=== PATIENT | female | born 1990 | race Caucasian/White ===

== ENCOUNTER 2017-06-18 09:25 | Emergency (ER) | payer MEDICAID ==
[2017-06-18] MEDS ORDERED: ONDANSETRON HCL/PF 2 MG/ML VIAL ONE (10:42)
[2017-06-18] MEDS ORDERED: NORMAL SALINE 1,000 ML IV ONE (10:47)
[2017-06-18] MEDS ORDERED: ONDANSETRON HCL/PF 2 MG/ML VIAL IV ONE (10:47)
[2017-06-18 11:08] LABS: Hematocrit 39.5 % (37.0-47.0); Hemoglobin 13.3 gm/dL (12.5-16.0); Mean Cell Volume 84.4 fl (78-100); Mean Corpuscular Hemoglobin 28.4 pg (27-31); Mean Corpuscular Hgb Conc 33.7 g/dl (32-36); Mean Platelet Volume 10.5 fl (6.0-9.5); Neutrophil # 5.1 K/mm3 (1.3-6.0); Neutrophil % 75.6 % (42-75.0); Platelet Count 203 K/mm3 (150-450); Red Blood Count 4.68 M/mm3 (4.2-5.4); Red Cell Distribution Width 14.1 % (11.5-14.0); White Blood Count 6.8 K/mm3 (4.0-10.5)
[2017-06-18 11:17] LABS: Urine Appearance Slightly Cloudy; Urine Color Dark Yellow
[2017-06-18 11:18] LABS: Urine Bilirubin Negative (NEGATIVE); Urine Blood Negative /ul (NEGATIVE); Urine Ketone Negative (NEGATIVE); Urine Nitrite Negative (NEGATIVE); Urine Protein Negative (NEGATIVE); Urine Urobilinogen Normal (NORMAL); Urine WBC 0-5 /hpf (0-5)
[2017-06-18 11:19] LABS: Urine Amorphous Sediment Few - 1+ (NONE-FEW); Urine Bacteria 1+; Urine RBC None Seen /hpf (0-5)
[2017-06-18 11:22] LABS: Albumin * 3.2 gm/dl (3.4-5.0); Anion Gap 17.6 mmol/L (6.8-13.8); BUN/Creatinine Ratio 10.7 (9.0-21.6); Bilirubin, Total 0.2 mg/dL (0.0-1.1); Ca. Corrected For Albumin 8.8 mg/dL (8.4-10.2); Calcium * 8.5 mg/dL (7.9-10.9); Carbon Dioxide 19.2 mmol/L (24-32.6); Potassium 3.8 mmol/L (3.4-4.6); Total Protein 7.1 gm/dL (6.2-8.2)
--- NOTE | 2017-06-18 12:10 | ERNOTE ---
Medical Problem HPI - Narrative Date of Service: 06/18/17 - General Chief Complaint: Nausea/Vomiting Time Seen by Provider: 06/18/17 11:05 Source: patient Exam Limitations: no limitations - Immun/Allergies/Home Medications Immunizations: IMMUNIZATION HX Immunizations Up to Date Yes History of Influenza Vaccine Yes Hx Pneumococcal Vaccination No Allergies/Adverse Reactions: Allergies No Known Allergies Allergy (Verified 06/18/16 11:28) Home Medications: HOME MEDICATIONS ALPRAZolam [Xanax] 1 mg PO TID 02/11/15 [Last Taken Unknown] Sertraline HCl [Zoloft] 250 mg PO DAILY 02/11/15 [Last Taken Unknown] Levothyroxine Sodium [Synthroid] 175 mcg PO DAILY 10/18/15 [Last Taken Unknown] Ondansetron HCl [Zofran] 4 mg PO Q3H6XD PRN #20 tablet 06/18/17 [Last Taken Unknown] Vit No.129/Iron/FA [ One Daily Tablet] 1 each PO DAILY [Last Taken Unknown] - History of Present History Narrative: Patient is a 26-year-old 3 para 2 female with 2 previous normal spontaneous vaginal delivery presents to the emergency room with increased pelvic cramping. And severe nausea. Patient states that she's been sick for approximately 2 days she also experienced some swelling of her lower extremities. Her pain is considered suprapubically right at the vaginal area. Date (Duration): 06/18/17 Time (Timing): 08:00 Timing: getting worse, other - started yesterday Modifying Factors - (Improves): Present: rest Review of Systems - Review of Systems Constitutional: Present: See HPI, malaise Cardiology: Present: no symptoms reported Gastrointestinal/Abdominal: Present: nausea, eating less, drinking less Genitourinary: Present: no symptoms reported Musculoskeletal: Present: other - pedal edema Skin: Present: no symptoms reported Neurological: Present: no symptoms reported Endocrine: Present: no symptoms reported Hematologic/Lymphatic: Present: no symptoms reported Psych: Present: no symptoms reported All Other Systems: All systems neg except as marked - Patient's Past Medical History Patient History - Medical: Anxiety, Hypothyroidism Patient History - Cardiac/Respiratory: No pertinent hx Patient History - Cancer: No Hx of Cancer Patient History - Surgical Procedures: Appendectomy, , T & A, Other Patient History - Other: None - Family History Father Family History - Medical: Other Family History - Cardiac/Respiratory: No pertinent hx - Social History Living Situations: home Abuse History: No History of abuse Psych History: Hx of Depression Smoking Status: Current every day smoker Have you smoked in the past 12 months: Yes Do you dip or chew tobacco: No Alcohol Use: rarely Drug Use: none - Immunizations Immunizations Up to Date: Yes Hx Pneumococcal Vaccination: No History of Influenza Vaccine: Yes Physical Exam - Physical Exam General Appearance: Present: alert, mild distress Head Exam: Present: normal inspection, no evidence of injury Eye Exam: Normal inspection: bilateral, PERRL: bilateral Ears, Nose, Throat: Present: dry mucous membranes Neck: Present: normal inspection, nontender Respiratory: Present: no respiratory distress, normal breath sounds Cardiovascular/Chest: Present: regular rate, rhythm, no murmur, normal peripheral pulses Gastrointestinal/Abdominal: Present: normal bowel sounds, nontender, nondistended, other - gravid abdomen nontender. Rectal Exam: Present: deferred Back Exam: Present: normal inspection Extremity Exam: Present: normal inspection Neurological Exam: Present: alert, oriented, normal mood/affect Skin Exam: Present: normal color, warm/dry Lymphatic Exam: Present: no adenopathy Pelvic Exam: Present: deferred ED Progress - Results and Orders Patient's Lab Results:: I have reviewed the patient's lab results. Results and Orders: Laboratory Tests 06/18/17 06/18/17 06/18/17 10:57 10:57 10:57 WBC 6.8 RBC 4.68 Hgb 13.3 Hct 39.5 MCV 84.4 MCH 28.4 MCHC 33.7 RDW 14.1 H Plt Count 203 MPV 10.5 H Immature Gran % (Auto) 0.60 H Immature Gran # (Auto) 0.04 H Neutrophils % 75.6 H Lymphocytes % 13.7 L Monocytes % 8.3 Eosinophils % 1.2 Basophils % 0.6 Nucleated RBC % 0.0 Neutrophils # 5.1 Lymphocytes # 0.9 L Monocytes # 0.6 Eosinophils # 0.1 Absolute Basophils 0.0 Sodium 137 Plasma Sodium 137 Potassium 3.8 Chloride 104 Carbon Dioxide 19.2 L Anion Gap 17.6 H BUN 6 D Creatinine 0.56 Est GFR (Non-Af Amer) 139 H D BUN/Creatinine Ratio 10.7 Random Glucose 93 Calcium 8.5 Calcium Adj for Albumin 8.8 Total Bilirubin 0.2 AST 24 ALT 38 Alkaline Phosphatase 74 Total Protein 7.1 Albumin 3.2 L Urine Color Dark yellow Urine Appearance Slightly cloudy Urine pH 6.0 Ur Specific [place] 1.030 Urine Protein Negative Urine Glucose (UA) Negative Urine Ketones Negative Urine Blood Negative Urine Nitrate Negative Urine Bilirubin Negative Urine Urobilinogen Normal Ur Leukocyte Esterase Negative Urine RBC None seen Urine WBC 0-5 Ur Epithelial Cells 5-10 H Amorphous Sediment Few - 1+ Urine Bacteria 1+ H Urine Culture Comments No culture indicated - Vital Signs Patient's Vital Signs:: I have reviewed the patient's vital signs. Vital Signs: Vital Signs 06/18/17 06/18/17 06/18/17 09:32 10:14 10:46 Temperature 36.6 C Pulse Rate 108 H 73 85 Respiratory 14 16 18 Rate Blood Pressure 145/81 135/88 114/72 O2 Sat by Pulse 100 97 94 Oximetry 06/18/17 10:49 Temperature 37.0 C Pulse Rate 82 Respiratory 16 Rate Blood Pressure 135/88 O2 Sat by Pulse 97 Oximetry - CT/Ultrasound CT/Ultrasound Narrative: OB ultrasound performed to the report will be reviewed per radiologist's. Patient has no evidence of placenta previa. Low-lying placenta is noted but she is only 13 weeks. heart tones 150 155 bpm active movement of fetus was noted. [facility] PATIENT RADIOLOGY STUDY REPORT Patient Patient Name:ASHISH MCINTOSH Date: 1990 Sex: F Order Number: [id number] Unique Exam ID: [id number] Exam Requested: OB LIMIT - US OB Limited Date Scheduled: 06-18-2017 10:50 AM Study Priority: Requesting Service: Requesting Physician: Mariama Godoy Reason for Exam: severe cramping, nausea Radiological Report : [address] [place] [address] NAME: ASHISH MCINTOSH : 1990 MR #: [id number] CC: Mariama Godoy DO LOC: ER ADM DATE: X-RAY REPORT [id number] ULT/US OB Limited Exam Date: 06/18/2017 10:50 Ordering Physician: Mariama Godoy HISTORY/INDICATION: 26 years old Female severe cramping, nausea, . Clinical IRAM of 12/06/2017, clinical gestational age of 15 weeks 4 days. TECHNIQUE: Transabdominal ultrasound images obtained in a limited fashion as below. COMPARISONS: None available regarding the current . US OB Limited FINDINGS/IMPRESSION: 1. There is a single gestational sac with a single live intrauterine , with transverse lie, with spontaneous motion, with heart tone seen with M -mode imaging, with heart rate of 155 bpm. 2. Anterior low-lying placenta noted, with inferior edge of the placenta near the internal os. 3. Amniotic fluid appears to be grossly adequate by visual inspection. 4. Transabdominal measurement of the cervical length is within normal limits measuring 3.36 cm without obvious internal funneling. 5. There may be a transient contraction of the posterior uterine wall. 6. No free fluid in the pelvis. Electronically signed by Ria Andujar M.D.. Ria Andujar MD Dict: 06/18/17 1132 Typed: 06/18/17 113/ 06/18/17 1136 06/18/17 1139 , Approved by: RIA ANDUJAR Approval Date: 06-18-2017 Approval Time: 11:32 AM THIS REPORT WAS RECEIVED FROM THE [employer] SYSTEM - Progress/Reassessment Chief Complaint: Nausea/Vomiting Progress:: Improved Plan - Plan Plan: Patient was stable for discharge for discharge vital signs were reviewed with her and she had significantly low blood pressure was counseled on staying well hydrated using fluids of vitamin water and recommended follow-up with her OB within the next 48 hours. Departure - Departure Clinical Impression: Hypovolemia dehydration Qualifiers: Weeks of gestation: 15 weeks Qualified Code(s): Z3A.15 - 15 weeks gestation of Disposition: Home self-care Condition: Stable Instructions: Rehydration, Adult, Eating Plan for Women Referrals: Nini Garibay MD [Primary Care Provider] - Jose Frost DO [Staff Physician] - 06/22/17 (call for a recheck of your blood pressure ) Prescriptions: Ondansetron HCl [Zofran] 4 mg PO Q3H6XD PRN #20 tablet PRN Reason: Nausea
[2017-06-18 13:18] VITALS: BP 95/40
== END 2017-06-18 12:42 | disposition home or self-care (01) ==
LOC: ER 09:25
DX: O99.282 Endocrine, nutritional and metabolic diseases complicating pregnancy, second trimester (principal); Z3A.15 15 weeks gestation of pregnancy; F17.200 Nicotine dependence, unspecified, uncomplicated; E03.9 Hypothyroidism, unspecified; F41.9 Anxiety disorder, unspecified; F32.9 Major depressive disorder, single episode, unspecified
CPT/HCPCS: 36415; 76815; 80053; 81001; 85025; 96361; 96374; 99284; J2405

== ENCOUNTER 2017-09-13 12:21 | Day surgery (SDC) | payer MEDICAID ==
[2017-09-13] MEDS ORDERED: MORPHINE SULFATE 4 MG/ML SYRG IV ONE (13:44)
[2017-09-13] MEDS ORDERED: METOCLOPRAMIDE HCL 5 MG/ML VIAL IV ONE (13:44)
[2017-09-13] MEDS ORDERED: NORMAL SALINE 1,000 ML IV ONE ×2 (13:44→15:48)
[2017-09-13] MEDS ORDERED: METOCLOPRAMIDE HCL 5 MG/ML VIAL ONE (13:47)
[2017-09-13] MEDS ORDERED: MORPHINE SULFATE 4 MG/ML SYRG ONE (13:47)
--- NOTE | 2017-09-13 13:53 | ERNOTE ---
GI Bleeding/Rectal Pain ER Date of Service: 09/13/17 Presenting Symptoms: hemorrhoids Time Seen by Provider: 09/13/17 12:48 Source: patient, RN notes reviewed, past records Exam Limitations: no limitations Immunizations: IMMUNIZATION HX Immunizations Up to Date Yes History of Influenza Vaccine Yes Hx Pneumococcal Vaccination No Allergies/Adverse Reactions: Allergies No Known Allergies Allergy (Verified 09/13/17 12:28) Home Medications: HOME MEDICATIONS ALPRAZolam [Xanax] 1 mg PO TID 02/11/15 [Last Taken Unknown] Sertraline HCl [Zoloft] 250 mg PO DAILY 02/11/15 [Last Taken Unknown] Levothyroxine Sodium [Synthroid] 225 mcg PO DAILY 10/18/15 [Last Taken Unknown] Ondansetron HCl [Zofran] 4 mg PO Q3H6XD PRN #20 tablet 06/18/17 [Last Taken Unknown] Vit No.129/Iron/FA [ One Daily Tablet] 1 each PO DAILY [Last Taken Unknown] Hydroxyzine HCl 50 mg PO HS 09/13/17 [Last Taken Unknown] - Pain Score Pain Score #1 Pain Score: 8 Narrative: 27 year old female patient of Dr. Frost presents to the ED for hemorrhoids that began bothering her 2 days ago. She is 28 weeks . She reports having problems with hemorrhoids during her previous pregnancies, but they were not this severe. She has tried numerous OTC medications and home remedies without improvement. She denies constipation and has been taking a stool softener. Nausea/Vomiting: Present: none Abdominal Pain: Present: none Rectal Bleeding: Present: none Associated Symptoms: Reports: rectal pain. Denies: constipation/hard stools, dizziness, light headedness, diarrhea Prior Treament: Reports: similar symptoms before. Denies: recently seen Review of Systems - Review of Systems Constitutional: Absent: fever, chills, malaise EYE: Present: no symptoms reported ENT: Present: no symptoms reported Respiratory: Absent: shortness of breath, cough Cardiology: Absent: chest pain, palpitations, syncope Gastrointestinal/Abdominal: Absent: nausea, vomiting, abdominal pain Genitourinary: Absent: dysuria, hematuria Musculoskeletal: Absent: muscle pain, joint pain Skin: Absent: rash, lesions, lumps Neurological: Absent: headache, dizziness/light-headedness Endocrine: Present: no symptoms reported Hematologic/Lymphatic: Absent: easy bruising, easy bleeding Psych: Present: no symptoms reported - Patient's Past Medical History Patient History - Medical: Anxiety, Chronic Pain, Depression, GERD, Hypothyroidism, Migraines, Obesity Patient History - Cardiac/Respiratory: No pertinent hx Patient History - Cancer: No Hx of Cancer Patient History - Surgical Procedures: Appendectomy, , T & A, Orthopedic Patient History - Other: None LMP (females 10-50): - LMP (Calendar): 02/09/17 - Family History Father Family History - Medical: Other Family History - Cardiac/Respiratory: No pertinent hx - Social History Living Situations: home Abuse History: No History of abuse Psych History: Hx of Depression, Current tx/ever been on anti-depressants or anti-anxiety meds Smoking Status: Current every day smoker Alcohol Use: none Drug Use: none - Immunizations Immunizations Up to Date: Yes Hx Pneumococcal Vaccination: No History of Influenza Vaccine: Yes Physical Exam - Physical Exam General Appearance: Present: alert, mild distress, obese Neck: Present: normal inspection, nontender, supple Respiratory: Present: no respiratory distress, normal breath sounds, no accessory muscle use, lungs clear Cardiovascular/Chest: Present: no murmur, normal peripheral pulses, tachycardia Gastrointestinal/Abdominal: Present: normal bowel sounds, nontender, soft, distended - Gravid uterus Rectal Exam: Present: tenderness, hemorrhoids - Large, tense, nonreducible Extremity Exam: Present: normal inspection, normal range of motion, no edema Neurological Exam: Present: alert, oriented, normal mood/affect, no motor/ sensory deficits Skin Exam: Present: normal color, warm/dry ED Progress - Vital Signs Patient's Vital Signs:: I have reviewed the patient's vital signs. Vital Signs: Vital Signs 09/13/17 09/13/17 09/13/17 12:24 12:47 13:25 Temperature 36.9 C Pulse Rate 108 H 88 86 Respiratory 12 14 Rate Blood Pressure 135/84 111/70 123/76 O2 Sat by Pulse 100 98 97 Oximetry - Progress/Reassessment Chief Complaint: Rectal Bleeding Progress:: Unchanged Progress Note-Subjective: 09/13/17 13:20 Dr. Medina contacted regarding patient and saw her in the ED. He plans to take her to the OR. The patient last ate an hour ago. She will be moved to ambulatory surgery status until later this afternoon when the procedure can be done. Departure Clinical Impression: Hemorrhoids during in third trimester - Departure Disposition: [facility] Condition: Stable Referrals: Nini Garibay MD [Primary Care Provider] -
--- NOTE | 2017-09-13 14:50 | HP ---
Chief Complaint - Chief Complaint Date of Service: 09/13/17 Time of Service: 14:42 Chief Complaint: Painful hemorrhoid History of Present Illness: 28 week pt presents with 3 day history of hemorrhoidal pain. Presented to ER and has A large thrombosis. - Patient's Past Medical History Patient History - Medical: Anxiety, Chronic Pain, Depression, GERD, Hypothyroidism, Migraines, Obesity Patient History - Cardiac/Respiratory: No pertinent hx Patient History - Cancer: No Hx of Cancer Patient History - Surgical Procedures: Appendectomy, , T & A, Orthopedic Patient History - Other: None LMP (females 10-50): - LMP (Calendar): 02/09/17 - Family History Father Family History - Medical: Other Family History - Cardiac/Respiratory: No pertinent hx - Social History Living Situations: home Abuse History: No History of abuse Psych History: Hx of Depression, Current tx/ever been on anti-depressants or anti-anxiety meds Smoking Status: Current every day smoker Alcohol Use: none Drug Use: none - Immunizations Immunizations Up to Date: Yes Hx Pneumococcal Vaccination: No History of Influenza Vaccine: Yes Review Of Systems (GEN) - Review of Systems Abdominal: Present: Other - See HPI Misc: All systems neg except as marked Immunizations: IMMUNIZATION HX Immunizations Up to Date Yes History of Influenza Vaccine Yes Hx Pneumococcal Vaccination No Allergies/Adverse Reactions: Allergies Allergy/AdvReac Type Severity Reaction Status Date / Time No Known Allergies Allergy Verified 09/13/17 12:28 Home Medications: HOME MEDICATIONS ALPRAZolam [Xanax] 1 mg PO TID 02/11/15 [Last Taken Unknown] Sertraline HCl [Zoloft] 250 mg PO DAILY 02/11/15 [Last Taken Unknown] Levothyroxine Sodium [Synthroid] 225 mcg PO DAILY 10/18/15 [Last Taken Unknown] Ondansetron HCl [Zofran] 4 mg PO Q3H6XD PRN #20 tablet 06/18/17 [Last Taken Unknown] Vit No.129/Iron/FA [ One Daily Tablet] 1 each PO DAILY [Last Taken Unknown] Hydroxyzine HCl 50 mg PO HS 09/13/17 [Last Taken Unknown] Exam - Exam Vital Signs: Vital Signs - Last Taken Temp 36.9 C 09/13/17 12:24 Pulse 78 09/13/17 13:58 Resp 14 09/13/17 13:25 BP 111/65 09/13/17 13:58 Pulse Ox 97 09/13/17 13:58 Constitutional: Present: Alert, Oriented x3, Cooperative, Moderate distress ENT Exam: Present: normal ENT inspection, other - Three stars tattooed on right upper forehead Eye Exam: bilateral eye: normal inspection Neck: Present: full range of motion, supple, trachea midline Back Exam: Present: normal inspection Respiratory: Present: lungs clear, normal breath sounds, no respiratory distress Cardiovascular/Chest: Present: regular rate, rhythm Abdomen: Present: other - Fundal height appropriate for gestational age /Rectal: Present: hemorrhoids - Large thrombosis of entire left half of anal verge. Meaningful exam is precluded. Extremity: Present: normal inspection Skin Exam: Present: warm/dry Eye contact: Present: cooperative Thoughts: Present: normal thought pattern Assessment/Plan - Narrative Narrative: Plan exam under anesthesia and I&D thrombosed external hemorrhoids. The options , risks, and benefits were reviewed fully. She seems to understand, asks appropriate questions, and desires to proceed. - Assessment/Plan (1) External thrombosed hemorrhoids Problem: Acute (2) Hemorrhoids during in third trimester Problem: Acute
[2017-09-13] MEDS ORDERED: BUPIVACAINE HCL 50 ML VIAL IJ ONE ×2 (17:00)
--- NOTE | 2017-09-13 17:49 | OR ---
Operative Report - Dictated Report Narrative: Date: 09/13/2017 Preop diagnosis: Extensive thrombosis external hemorrhoids Postop diagnosis: Same Procedure: Examination under anesthesia, Incision and Enucleation of thrombosed external hemorrhoids Staff surgeon: Sg Medina MD Anesthesia: Spinal/MAC EBL: 10 cc Specimen: none Indication: This patient has presented with a 3 day history of anal pain and is 28 weeks . She has an exceedingly large thrombosis of the externals from 12-6:00 on the left side of the anal verge. Description: After spinal induction the patient was placed in cheng stirrups and the anal region was prepped and draped in a sterile fashion. Examination was performed and demonstrated large but uncomplicated external hemorrhoids in the right anterior and right posterior column. The was no significant involvement of internal hemorrhoidal plexus. There was thrombosis along the entire rim of the left side. A field block was performed on the left side with 0.5% marcaine. A radial incision was carried out at 3:00 and all the clots were enucleated through this single incision. A marcaine soaked piece of gelfoam was rolled into a plug and inserted in the anal canal. An anal retentive dressing and Sani-Panties were applied. The patient tolerated the procedure well and was discharged from the operating room in stable condition.
[2017-09-13] MEDS ORDERED: MORPHINE SULFATE 4 MG/ML SYRG IV PRN (17:54)
[2017-09-13] MEDS ORDERED: RINGER'S SOLUTION,LACTATED 1,000 ML IV PRN (17:54)
[2017-09-13] MEDS ORDERED: oxyCODONE HCL/ACETAMINOPHEN 1 TAB TABLET PO PRN (17:54)
[2017-09-13] MEDS ORDERED: oxyCODONE HCL/ACETAMINOPHEN 1 TAB TABLET ONE (18:30)
[2017-09-13 19:59] VITALS: BP 100/60
== END 2017-09-13 13:46 | disposition home or self-care (01) ==
LOC: ER 12:21 → AMB 13:45
PROVIDERS: ATTEND Specialist
PROC: 0D9Q3ZZ Drainage of Anus, Percutaneous Approach (ICD-10-PCS; principal; 2017-09-13 16:30)
DX: K64.5 Perianal venous thrombosis (principal); K21.9 Gastro-esophageal reflux disease without esophagitis; E03.9 Hypothyroidism, unspecified; F41.9 Anxiety disorder, unspecified; E66.9 Obesity, unspecified; Z68.41 Body mass index [BMI] 40.0-44.9, adult; Z33.1 Pregnant state, incidental